=== PATIENT | female | born 1965 | race Caucasian/White ===

== ENCOUNTER 2023-03-12 20:22 | Emergency (ER) | payer BC, MEDICAID, SELFPAY ==
[2023-03-12 20:49] VITALS: BP 134/80; PULSE 103; RESP 16; TEMP 37.6; O2SAT 93; BMI 42.4
[2023-03-12 21:46] VITALS: TEMP 37.7
[2023-03-12 22:42] LABS: Rapid Strep A Test Negative (Negative)
--- NOTE | 2023-03-12 22:47 | ED_ITS ---
HPI - Headache General: Chief Complaint: Headache Stated Complaint: sore throat, neck and head pain Time Seen by Provider: 03/12/23 21:58 History of Present Illness: 58yo female here with sore throat that has been ongoing for the past couple of days as well as a headache and arthralgias. Patient reports it does hurt when she swallows. She states her son has similar symptoms. Patient denies any fever, difficulty breathing, shortness of breath, chest pain, abdominal pain, vomiting, diarrhea. Associated symptoms: Deny chest pain, fever(s) or vomiting Review of Systems Const: Denies: fever(s), chills or body aches ENMT: Reports: throat pain Card: Denies: chest pain Resp: Denies: dyspnea GI: Denies: vomiting or diarrhea Neuro: Reports: headache(s) Physical Exam Const: COMMON NORMALS: no acute distress, patient oriented x3 and alert GENERAL APPEARANCE: cooperative ORIENTATION/CONSCIOUSNESS: Yes awake OTHER: Patient is ambulatory to the exam room unassisted. She is sitting upright on the stretcher in no acute distress. No family is at bedside HENMT: COMMON NORMALS: normocephalic, atraumatic, TM's normal bilaterally and Normal nasal mucous membranes and turbinates present HEAD & SCALP: normocephalic and atraumatic NOSE: Normal nasal mucous membranes and turbinates present TYMPANIC MEMBRANE: TM's normal bilaterally THROAT: posterior oropharynx abnormal erythema Eye: GENERAL EYE: appearance normal, both eyes and all related structures Neck/C-Spine: COMMON NORMALS: full ROM Chest: CHEST: Yes Symmetrical chest wall rise Resp: COMMON NORMALS: normal respiratory effort EFFORT & INSPECTION: Yes a ble to speak in complete sentences and No respiratory distress Cardio: COMMON NORMALS: regular rate and regular rhythm RATE: regular rate RHYTHM: regular rhythm Neuro: COMMON NORMALS: patient oriented x3 SENSORIUM/ORIENTATION: Yes alert Psych: COMMON NORMALS: cooperative ATTITUDE: Yes calm Course Vital Signs: Vital signs: Vital Signs Temperature 99.9 F H 03/12/23 21:46 Pulse Rate 70 03/12/23 23:19 Respiratory Rate 20 H 03/12/23 23:19 Blood Pressure 161/87 03/12/23 23:19 Pulse Oximetry 97 03/12/23 23:19 Oxygen Delivery Me thod Room Air 03/12/23 20:49 MDM - Headache Medical Decision Making 58yo female here with a sore throat and headache that has been ongoing for the past couple of days. Patient also reports that she has had arthralgias. She denies difficulty breathing, shortness of breath, chest pain, abdominal pain, vomiting, diarrhea. Patient also declines any recent tick bites. Patient is nontoxic in appearance. Vital signs are stable. Differentials include strep pharyngitis, viral infection, tonsillitis Rapid strep is negative, culture is pending. Discussed findings with patient. Advised this is likely viral in nature and is typically self-limiting. Recommend Tylenol and/ibuprofen as needed for fever and discomfort. Advised to increase fluid intake and continue to monitor symptoms. Recommend follow-up with primary care, call later this week with an update of symptoms and to discuss a recheck. Advised return to the emergency department if any rapid worsening symptoms and as needed. Lab Data I reviewed the patient's lab results. Laboratory Results Group A Strep Rapid Negative (Negative) 03/12/23 22:26 Discharge Plan Discharge Patient Disposition: Home Clinical Impression: Nonspecific syndrome suggestive of viral illness Condition: Stable Discharge Orders: Discharge ED (Routine); Ordered 03/12/23 Ordered By: Robe Frost Referrals: Lucia Sutherland DO [Primary Care Provider] - Discharge Diet: Usual diet Discharge Activity: Resume usual activity Patient Instructions: Viral Syndrome (ED) Activity Restrictions/Additional Instructions: Rapid strep is negative, culture is pending. We will notify you if the culture is positive Increase fluid intake and continue to monitor your symptoms Use [id number] Tylenol and/ibuprofen as needed for headache and comfort Follow-up with primary care, call later this week with an update of symptoms and to discuss a recheck Return to the emergency department if any rapid worsening symptoms, difficulty breathing, shortness of breath, chest pain, and as needed Coding Level of Care Code ED Civil Engineering Technician for [facility]
[2023-03-12 23:19] VITALS: BP 161/87; PULSE 70; RESP 20; O2SAT 97
== END 2023-03-12 23:20 | disposition home or self-care (01) ==
PROVIDERS: Nurse Practitioner; PCP Family Medicine
DX: R51.9 Headache, unspecified (principal); J02.9 Acute pharyngitis, unspecified; M54.2 Cervicalgia
CPT/HCPCS: 12345; 87081; 87880; 99283

== ENCOUNTER 2023-11-02 16:07 | Emergency (ER) | payer BC, MEDICAID, SELFPAY ==
[2023-11-02 16:14] VITALS: BP 159/86; PULSE 70; RESP 17; TEMP 36.6; O2SAT 94; BMI 42.5
--- NOTE | 2023-11-02 16:25 | XRR_ITS ---
PROCEDURE INFORMATION: Exam: XR Chest Exam date and time: 11/02/2023 4:36 PM Age: 58 years old Clinical indication: Pain; Angina pectoris; Additional info: Chest pain TECHNIQUE: Imaging protocol: Radiologic exam of the chest. Views: 1 view. COMPARISON: No relevant prior studies available. FINDINGS: Lungs: Unremarkable. No consolidation. Pleural spaces: Unremarkable. No pleural effusion. No pneumothorax. Heart/Mediastinum: Unremarkable. No cardiomegaly. Bones/joints: Unremarkable. XR/XR chest 1V portable [id number] IMPRESSION: No acute findings.
--- NOTE | 2023-11-02 16:44 | ED_ITS ---
HPI - Chest Pain 2 General: Chief Complaint: Chest Pain Stated Complaint: chest pains Time Seen by Provider: 11/02/23 16:25 History of Present Illness: The patient presents with a chief complaint of right-sided chest pain and right arm discomfort that began yesterday. The patient denies any shortness of breath but occasionally catches a deep breath. No recent fevers, chills, sinus congestion, or cough are reported. The patient describes a sensation of feeling weird and tingly in the chest area but denies any new back pain or abdominal pain. The patient has a history of constipation and takes heartburn medication nightly. No abnormal vaginal bleeding or discharge is reported. The patient experiences occasional knee pain when getting up but states it is not out of the ordinary. The patient mentions a history of a stroke in 2019, which resulted in vision loss in the right eye. The patient reports that bright sunlight sometimes affects their head and vision. The patient's blood pressure typically runs around 138/80 mmHg and is not on any blood pressure medication. The patient has a history of gallbladder removal, hernia repair, and panniculectomy. The patient also has a loop recorder implanted but has not been read since 2019. The patient denies any history of smoking. Review of Systems 2 General: Reports: 10 or more systems reviewed and unremarkable except in HPI and below Physical Exam 2 Const: COMMON NORMALS: no acute distress, patient oriented x3, healthy appearing, alert and well nourished HENMT: COMMON NORMALS: normocephalic HEAD & SCALP: normocephalic Eye: COMMON NORMALS: EOMs intact bilaterally Neck/C-Spine: COMMON NORMALS: full ROM and supple Resp: COMMON NORMALS: normal respiratory effort, No retractions and clear to auscultation bilaterally AUSCULTATION: clear to auscultation bilaterally O THER: Not TTP Cardio: COMMON NORMALS: regular rate, regular rhythm, No gallops present (Cardio) and No murmurs present (Cardio) RATE: regular rate RHYTHM: r egular rhythm GI: COMMON NORMALS: Soft to palpation and non-tender PALPATION: Yes Soft to palpation Extremity: GENERAL: Yes normal exam except as noted Neuro: COMMON NORMALS: patient oriented x3 SENSORIUM/ORIENTATION: Yes alert Skin: COMMON NORMALS: no rashes or lesions noted GENERAL SKIN EXAM: no rashes or lesions noted Course 2 Vital Signs: Vital signs: Vital Signs Temperature 97.9 F 11/02/23 16:14 Pulse Rate 70 11/02/23 16:14 Respiratory Rate 17 11/02/23 16:14 Blood Pressure 159/86 11/02/23 16:14 Pulse Oximetry 94 11/02/23 16:14 Oxygen Delivery Me thod Room Air 11/02/23 16:14 MDM - Chest Pain Medical Decision Making 58-year-old female presents to the emergency department for evaluation of right- sided chest pain that was radiating into her arm. Her laboratory examination is negative for elevated troponin, elevated D-dimer, and CMP globally normal. Patient's chest pain is unlikely to be ACS, PE, or other life-threatening condition. Patient's chest pain likely secondary to either muscle skeletal or GI source. Instructed patient to follow-up with her primary care physician for further evaluation. Discussed return precautions. Patient discharged home in good condition. Differential Diagnosis Likely acute massive pulmonary embolism, acute respiratory failure and acute myocardial infarction Lab Data 11/02/23 16:38 11/02/23 16:38 Radiology Impressions Chest X-Ray 11/02/23 16:25 IMPRESSION: No acute findings. Laboratory Results WBC 7.45 10^3/uL (3.29-11.43) 11/02/23 16:38 RBC 5.60 10^6/uL (3.85-5.65) 11/02/23 16:38 Hgb 16.50 g/dL (11.27-16.99) 11/02/23 16:38 Hct 49.0 % (36-47) H 11/02/23 16:38 MCV 87.5 fl (85-98) 11/02/23 16:38 MCH 29.5 pg (27-33) 11/02/23 16:38 MCHC 33.7 g/dL (30-55) 11/02/23 16:38 RDW 12.5 % (12.1-15.1) 11/02/23 16:38 Plt Count 138 10^3/cmm (157-399) L 11/02/23 16:38 MPV 11.2 fL (7.4-10.4) H 11/02/23 16:38 Neut % (Auto) 59.5 % 11/02/23 16:38 Lymph % (Auto) 31.5 % 11/02/23 16:38 [place] % (Auto) 5.9 % 11/02/23 16:38 Eos % (Auto) 2.3 % 11/02/23 16:38 Baso % (Auto) 0.5 % 11/02/23 16:38 Neut # (Auto) 4.43 10^3/uL (1.8-7.7) 11/02/23 16:38 Lymph # (Auto) 2.4 10^3/uL (0.8-4.8) 11/02/23 16:38 [place] # (Auto) 0.4 10^3/uL (0.2-0.9) 11/02/23 16:38 Eos # (Auto) 0.2 10^3/uL (0.0-0.8) 11/02/23 16:38 Baso # (Auto) 0.0 10^3/uL (0.0-0.1) 11/02/23 16:38 Nucleated RBC % (auto) 0 % 11/02/23 16:38 Nucleated RBCs # 0.0 /100WBC 11/02/23 16:38 PT 13.90 SECONDS (12.1-14.9) 11/02/23 16:38 INR 1.04 (0.8-1.2) 11/02/23 16:38 APTT 20.6 SECONDS (23.9-36.7) L 11/02/23 16:38 D-Dimer 0.36 ug/mLFEU (0-0.59) 11/02/23 16:38 Sodium 137 mmol/L (136-145) 11/02/23 16:38 Potassium 3.8 mmol/L (3.5-5.1) 11/02/23 16:38 Chloride 101 mmol/L (98-107) 11/02/23 16:38 Carbon Dioxide 26 mmol/L (22-29) 11/02/23 16:38 Anion Gap 13.8 (5-19) 11/02/23 16:38 BUN 10 mg/dL (6-20) 11/02/23 16:38 Creatinine 0.7 mg/dL (0.5-0.9) 11/02/23 16:38 GFR Calculation 86.2 mL/min (90-130) L 11/02/23 16:38 Glucose 123 mg/dL (65-115) H 11/02/23 16:38 Calculated Osmolality 284 mOsm/kg (285-295) L 11/02/23 16:38 Calcium 10.3 mg/dL (8.5-10.5) 11/02/23 16:38 Total Bilirubin 1.3 mg/dL (0.15-1.2) H 11/02/23 16:38 AST 24 U/L (0-32) 11/02/23 16:38 ALT 25 U/L (0-33) 11/02/23 16:38 Alkaline Phosphatase 86 U/L (35-105) 11/02/23 16:38 Troponin T Baseline < 6 ng/L (0-10) 11/02/23 16:38 Total Protein 7.6 g/dL (6.6-8.7) 11/02/23 16:38 Albumin 4.3 g/dL (3.5-5.2) 11/02/23 16:38 Globulin 3.3 g/dL (1.3-4.6) 11/02/23 16:38 All radiology interpretation(s) finalized by discharge Discharge Plan Discharge Patient Disposition: Home Clinical Impression: Atypical chest pain Hypertension Qualifiers: Hypertension type: primary hypertension Qualified Code(s): I10 - Essential (primary) hypertension Condition: Stable Prescriptions: No Action famotidine 20 mg Tablet 20 mg PO QPM docusate sodium 100 mg Capsule 100 mg PO DAILY PRN (Reason: Constipation) Discharge Orders: Discharge ED (Routine); Ordered 11/02/23 Ordered By: Jude Law Referrals: Lucia Sutherland DO [Primary Care Provider] - Discharge Diet: Advance as tolerated Discharge Activity: Resume usual activity Patient Instructions: Opioid Safety, Pain Management Activity Restrictions/Additional Instructions: Follow-up with primary care doctor for management of hypertension and further evaluation for noncardiac chest pain. Coding Level of Care Code ED Seasonal Recruiter for [facility]
[2023-11-02 16:46] LABS: Basophils % 0.5 %; Eosinophils # 0.2 10^3/uL (0.0-0.8); Eosinophils % 2.3 %; Lymphocytes # 2.4 10^3/uL (0.8-4.8); Lymphocytes % 31.5 %; Mean Corpuscular HGB Conc 33.7 g/dL (30-55); Mean Corpuscular Hemoglobin 29.5 pg (27-33); Mean Corpuscular Volume 87.5 fl (85-98); Mean Platelet Volume 11.2 fL (7.4-10.4); Monocytes # 0.4 10^3/uL (0.2-0.9); Monocytes % 5.9 %; Neutrophils # 4.43 10^3/uL (1.8-7.7); Neutrophils % 59.5 %; Nucleated Red Blood Cells % 0 %; Platelet Count 138 10^3/cmm (157-399); Red Cell Distribution Width 12.5 % (12.1-15.1); White Blood Count 7.45 10^3/uL (3.29-11.43)
[2023-11-02 17:05] LABS: INR 1.04 (0.8-1.2); Partial Thromboplastin Time 20.6 SECONDS (23.9-36.7)
[2023-11-02 17:09] LABS: D Dimer 0.36 ug/mLFEU (0-0.59)
[2023-11-02 17:10] LABS: Alanine Aminotransferase 25 U/L (0-33); Albumin Level 4.3 g/dL (3.5-5.2); Alkaline Phosphatase 86 U/L (35-105); Blood Urea Nitrogen 10 mg/dL (6-20); Calcium 10.3 mg/dL (8.5-10.5); Carbon Dioxide 26 mmol/L (22-29); Chloride 101 mmol/L (98-107); Creatinine Clr Calc Pharmacy 124.7817; Globulin 3.3 g/dL (1.3-4.6); Glomerular Filtration Rate 86.2 mL/min (90-130); Glucose 123 mg/dL (65-115); Osmolality Calculated 284 mOsm/kg (285-295); Sodium 137 mmol/L (136-145); Total Bilirubin 1.3 mg/dL (0.15-1.2); Total Protein 7.6 g/dL (6.6-8.7)
[2023-11-02 17:11] LABS: Anion Gap 13.8 (5-19); Potassium 3.8 mmol/L (3.5-5.1); Troponin(5th) Baseline < 6 ng/L (0-10)
[2023-11-02 17:13] LABS: Aspartate Amino Transferase 24 U/L (0-32)
== END 2023-11-02 18:23 | disposition home or self-care (01) ==
PROVIDERS: Emergency Provider General Practice; PCP Family Medicine
DX: R07.89 Other chest pain (principal); I10 Essential (primary) hypertension
CPT/HCPCS: 71045; 80053; 84484; 85025; 85378; 85610; 85730; 99285

== ENCOUNTER → 2023-11-14 09:29 | Outpatient (BNVA) | payer BC, MEDICAID, SELFPAY | PROVIDERS: PCP Family Medicine; Visit Provider Family Medicine | DX: Z13.6 Encounter for screening for cardiovascular disorders (principal); Z01.419 Encounter for gynecological examination (general) (routine) without abnormal findings; R07.0 Pain in throat | CPT/HCPCS: 80053; 80061; 85025; 87880; 88175 ==

== ENCOUNTER 2023-12-17 08:57 | Outpatient (CLI) | payer BC, MEDICAID, SELFPAY ==
--- NOTE | 2023-12-17 09:00 | MM_ITS ---
WS: [id number] BILATERAL 3D TOMOSYNTHESIS DIGITAL SCREENING MAMMOGRAPHY WITH CAD CLINICAL INFORMATION: Z12.39 - Encounter for other screening for malignant neop... HISTORY: Screening mammogram. No current complaints. COMPARISON: Outside examinations 2018 TECHNIQUE: Bilateral CC and MLO views. FINDINGS: Stereotactic biopsy recommended of the RIGHT breast calcifications in 2018 Scattered fibroglandular densities bilaterally. No suspicious focal mass, asymmetry, calcifications, or architectural distortion. No evidence of malignancy. Incidental intramammary lymph node upper oute r LEFT breast. Cluster calcifications outer RIGHT breast. Recommend spot magnification views in furth er evaluation. These appear slightly progressed since 2018 MM/[place] [id number] IMPRESSION: BI-RADS: 0-Incomplete: Need additional imaging evaluation FOLLOW UP: Need Additional Imaging Recommend spot magnification views of the calcifications outer RIGHT breast
== END 2023-12-17 08:58 | disposition home or self-care (01) ==
LOC: MOBLMAM 09:06
PROVIDERS: PCP Family Medicine; Visit Provider Family Medicine
DX: Z12.31 Encounter for screening mammogram for malignant neoplasm of breast (principal); R92.323 Mammographic fibroglandular density, bilateral breasts; R59.0 Localized enlarged lymph nodes; R92.1 Mammographic calcification found on diagnostic imaging of breast
CPT/HCPCS: 77063; 77067

== ENCOUNTER 2024-01-30 14:16 | Outpatient (CLI) | payer BC, MEDICAID, SELFPAY ==
--- NOTE | 2024-01-30 14:30 | MM_ITS ---
WS: [id number] RIGHT 3D TOMOSYNTHESIS DIGITAL MAMMOGRAPHY WITH CAD CLINICAL INFORMATION: right calcifications seen on screening mamogram HISTORY: Additional views calcifications COMPARISON: 12/17/2023 TECHNIQUE: 3 views of the right breast were obtained. FINDINGS: Scattered fibroglandular densities of the right breast. Again seen are the clustered calcifications o uter RIGHT breast. These appear relatively stable today on the magnification views since 2018. Stabil ity is reassuring. Recommend 6-month follow-up to confirm stability. MM/[place] [id number] IMPRESSION: BI-RADS: 3-Probably Benign FOLLOW UP: 6 Month Follow-up Recommend 6-month follow-up RIGHT breast diagnostic mammography with magnificat ion views of the calcifications
== END 2024-01-30 14:17 | disposition home or self-care (01) ==
LOC: RAD 14:17
PROVIDERS: PCP Family Medicine; Visit Provider Family Medicine
DX: R92.1 Mammographic calcification found on diagnostic imaging of breast (principal); R92.323 Mammographic fibroglandular density, bilateral breasts
CPT/HCPCS: 77061; G0279

== ENCOUNTER 2024-04-20 06:00 | Outpatient (CLI) | payer BC, MEDICAID, SELFPAY | END 2024-04-20 06:01 | disposition home or self-care (01) | LOC: RAD 05-08 13:34 | PROVIDERS: PCP Family Medicine; Visit Provider Family Medicine | DX: Z13.6 Encounter for screening for cardiovascular disorders (principal) | CPT/HCPCS: 80053; 80061; 84443; 85025 ==

== ENCOUNTER → 2024-05-07 09:48 | Outpatient (BNVA) | payer BC, MEDICAID, SELFPAY | PROVIDERS: PCP Family Medicine; Visit Provider Nurse Practitioner Family | DX: R73.9 Hyperglycemia, unspecified (principal) | CPT/HCPCS: 80053; 83036 ==

== ENCOUNTER 2024-05-11 12:01 | Outpatient (CLI) | payer BC, MEDICAID, SELFPAY ==
--- NOTE | 2024-05-11 12:30 | CT_ITS ---
WS: [id number] CT ABDOMEN AND PELVIS WITH CONTRAST HISTORY: recurrent incisional hernia with incarceration TECHNIQUE: Imaging performed of the abdomen and pelvis with IV contrast. Single phase imaging of the abdomen. Coronal and sagittal reformats are submitted. All CT scans at [facility] use at tet[facility] st one of these dose optimization techniques: automated exposure control; mA and/or kV adjustment per patient size (includes targeted exams where dose is matched to clinical indication); or iterative re construction. IV CONTRAST: Omnipaque 350; 100 mL IV. Oral contrast: Yes DLP: 1639.23 mGy.cm COMPARISON: None available. Lower thorax: Lung bases are clear. Heart is normal size. No hiatal hernia. Liver/biliary system: Mild hepatomegaly. No bile duct dilatation. Normal portal vein. Gallbladder: Prior cholecystectomy. Pancreas: Normal size pancreas and pancreatic duct. No adjacent inflammation. Spleen: Normal size spleen. No mass or infarct. Adrenal glands: Normal. Right kidney: Numerous scattered low attenuation masses throughout the kidney. These are probably cys ts but cannot be further characterized. There is no obstruction of the kidney. Normal ureter. Left kidney: Multiple low-attenuation masses throughout the kidney. Hounsfield units are slightly alfie vated suggesting these are not simple cysts. Aorta: Mild atherosclerosis with no aneurysm. Lymphadenopathy: None. Free fluid: None. GI tract: Nondistended stomach. No small bowel obstruction. No colon obstruction. Prior appendectomy. Mild sigmoid diverticulosis. Abdominal wall: Abnormal abdominal wall. There is a thin band of soft tissue beginning just above the level of the umbilicus and extending to the LEFT. This band of soft tissue is just deep to the rectu s muscle. The rectus muscle is very thin caliber and this may be the aponeurosis. There is fat betwee n this band of soft tissue and the additional musculature of the LEFT lateral abdominal wall. There i s a defect within the band which contains loops of nondilated small bowel. Extending inferiorly along the ventral abdominal wall there is an additional defect centrally just above the level of the symph ysis pubis. The orifice measures 5.0 cm and there are loops of nonobstructed small bowel. This hernia and small bowel contents hang low and extends below the symphysis pubis. Pelvis: No free fluid or adenopathy within the pelvis. Uterus and ovaries are both present and unrema rkable. Minimally distended bladder. Bones: Increase in the lumbar lordosis. Structures of S2 vertebral CT/CT abdomen pelvis w con* [id number] IMPRESSION: 1. Abnormal abdominal wall. Thin bandlike soft tissue extends from the midline of the abdomen to the LEFT and may be the aponeurosis of the rectus muscle. Th ere is fat between this band of soft tissue and abdominal wall. Defect within t he band contains small bowel but no obstruction. 2. There is a large infraumbilical abdominal wall hernia also containing nonob structed small bowel. This hernia extends inferiorly over the pelvis to the lev el of the symphysis pubis. 3. Prior cholecystectomy. 4. Numerous low-attenuation masses within each kidney. Majority of these are t oo small to characterize but these are not simple cysts. Consider ultrasound fo llow-up of the kidneys.
[2024-05-11] MEDS: iohexol 350 mg/mL 500 mL Btl (per mL) IV (13:05)
[2024-05-11] MEDS: iohexol 350 mg/mL 500 mL Btl (per mL) PO (13:06)
== END 2024-05-11 12:02 | disposition home or self-care (01) ==
LOC: RAD 12:02
PROVIDERS: PCP Family Medicine; Visit Provider Surgery
DX: K43.0 Incisional hernia with obstruction, without gangrene (principal); R93.89 Abnormal findings on diagnostic imaging of other specified body structures; Z90.49 Acquired absence of other specified parts of digestive tract; R93.429 Abnormal radiologic findings on diagnostic imaging of unspecified kidney
CPT/HCPCS: 74177

== ENCOUNTER 2024-05-21 13:37 | Inpatient (IN) | payer BC, MEDICAID, SELFPAY ==
[2024-05-21] VITALS (22 sets, daily range): BP systolic 93–147; BP diastolic 33–94; PULSE 53–77; RESP 12–20; TEMP 35.6–36.8; O2SAT 91–98; BMI 43.0
--- NOTE | 2024-05-21 07:45 | W.PM.OPSUD ---
Surgery/Procedure H&P Update DATE OF PROCEDURE: May 21, 2024 DATE H&P PERFORMED: 05/14/24 H&P UPDATE INFORMATION: I have reviewed H&P completed within last 30 days, I have examined patient prior to procedure and No changes to prior documentation PLANNED PROCEDURE: Operation Date: 05/21/24 09:05 Proposed Procedures p lap recurrent incisional hernia with mesh 62060,K43.0(Not Applicable) - Lacho Groves,
--- NOTE | 2024-05-21 08:22 | ANES.PREANE2 ---
Pre-Anesthetic Assessment Height/Weight: Height 5 ft 8 in Weight 283 lb O2 Del Method Room Air 05/21/24 07:53 Preop Diagnosis: Hernia Operation Date: 05/21/24 09:05 Proposed Procedures p lap recurrent incisional hernia with mesh 36278,K43.0(Not Applicable) - Lacho Groves DO Was Beta Allison taken within 24 hours: N/A Was Clonidine taken within 24 hours: N/A Last intake: Intake Last Liquid Date 05/20/24 Last Liquid Time 17:00 Last Solid Date 05/20/24 Last Solid Time 17:00 Social No alcohol and No tobacco Exam alert, oriented x 3, clear to auscultation bilaterally and regular rate & rhythm Airway Submandibular: within normal limits Cervical ROM: within normal limits Mallampati: Class II Comments: Comments: Upper dentures, full bottom teeth. Declines any loose Anesthetic Plan ASA status: 3 Anesthesia: General Other: No prior issues with anesthesia NPO since yesterday evening History of GERD, takes famotidine BMI 43 Borderline diabetic, A1c 6.3 METs greater than 4 Plan for GETA Medications/Allergies Home Medications Medication Instructions Recorded Confirmed Last Taken Type famotidine 40 mg tablet 40 mg PO BID #60 tabs 04/20/24 05/20/24 05/19/24 Rx rosuvastatin 5 mg tablet 5 mg PO DAILY #90 tabs 04/23/24 05/20/24 Unknown Rx Allergies Allergy/AdvReac Type Severity Reaction Status Date / Time No Known Allergies Allergy Verified 05/14/24 08:45 PFSH Anesthesia Surgical History Hx of section x3 Hx laparoscopic cholecystectomy Hx of hernia repair with panniculotomy Hx of colonoscopy unknown when last done Family History Mother Cancer non hodkins lymphoma Diabetes Father Cancer pancreatic Sister Breast cancer Social History Smoking and tobacco/nicotine status: never used tobacco/nicotine Second hand smoke exposure: No Alcohol intake: never Substance/Drug Use: never Data Anesthesia Cardiac Studies: No Data to Display
[2024-05-21] MEDS: sodium chloride 0.9% 1,000 ML 30 ML IV (08:28)
[2024-05-21] MEDS: ceFAZolin 3,000 MG in sodium chloride 0.9% (100 ml) 100 ML 200 MG IV (08:32)
[2024-05-21] MEDS: lidocaine-epi 2% PF 1:200,000 20 mL SDV 10 ML INJECTION (09:26)
[2024-05-21] MEDS: tranexamic acid 1,000 mg/10mL SDV 1000 MG IV (11:15)
--- NOTE | 2024-05-21 12:31 | P.OP_ITS ---
Operative Report Date of procedure: May 21, 2024 Pre-op diagnosis: Incarcerated recurrent incisional hernia Post-op diagnosis: same Procedure done: Laparoscopic converted to open incarcerated recurrent incisional hernia repair with mesh Extensive laparoscopic lysis of adhesions Implants: 8 inch round Ventralight mesh Specimens removed/disposition: Hernia sac Surgeon: Lacho Groves DO Anesthesia: General and Local Estimated blood loss (mL): 50 Complications: None apparent Brief History: This is a very pleasant 59-year-old female who presented my office with a recurrent incarcerated incisional hernia with mesh. Workup included a CT of the abdomen pelvis which showed the hernia to be incarcerated with both small and large bowel. Laparoscopic repair with mesh was indicated. The risks and benefits of the procedure, including bleeding, infection, scar, numbness, pain, need to convert to an open procedure, damage to surrounding structures, recurrence, were explained to the patient. She is understanding of the risks and wished to proceed Procedure: Patient was wheeled operative room placed on the OR table in the supine position. General endotracheal ovation was achieved by the part of anesthesia. The abdomen was inspected prepped and draped in usual sterile fashion. A timeout was performed. All present were in agreement. 2% lidocaine with epinephrine was used to anesthetize the skin overlying Adams's point in the left upper quadrant. A 5 mm incision was made with a 15 blade scalpel. A Veress needle was placed into the abdomen and the abdomen was insufflated to 15 mmHg. A 12 mm trocar was then placed, in a similar fashion, and the left lower quadrant. A large hernia containing small bowel, large bowel and omentum was identified in the lower abdomen. She longer has an umbilicus after a previous panniculectomy. I then began reducing the hernia both manually and with ligature. A second 5 mm trocar was then placed between the 2 other trocars. Greater than 1 hour laparoscopic lysis of adhesions was performed. At this po int was determined that it was best to convert to an open procedure in order to remove all of the small and the large bowel safely. A 10 blade scalpel was then used to make a midline laparotomy incision. Dissection was carried down through the fascia and peritoneum using electrocautery. A complex hernia sac was encountered and all adhesions were broken with electrocautery. Another greater than 1 hour of lysis of adhesions was performed. All bowel and omentum was reduced. I then ran the entirety of the small bowel. There was a small serosal tear that I oversewed with 3-0 Vicryl in interrupted fashion using Lembert stitches. Rest of the bowel looked fine. I then cut out the hernia sac electrocautery. I examined the rest of the abdomen and no intra-abdominal pathology was identified. I then closed the laparotomy incision using #1 PDS in a running fashion x 2. I then converted back to laparoscopy. An 8 inch round Ventralight mesh was inserted into the left lower quadrant. This was pulled up through the center of the repair with a Ke-Nannette. An 8 inch round Ventralight mesh was tacked into place using a secure strap and a double crown fashion. The 12 mm trocar site was then closed with a Ke-Nannette and 0 Vicryl suture in a [id number] fashion. Skin was closed with isaías. Patient tolerated procedure well. Due to the complexity of this hernia, was converted to an open procedure and the patient will be admitted to the hospital.
--- NOTE | 2024-05-21 13:23 | ANES.PROC ---
Anesthesia Procedures Procedure/Date: 05/21/24 Nerve Block ^: Nerve Block 1: Main Anesthesia: general anesthesia Time Out Performed: Yes Nerve block location: other (bilateral TAP block) Anesthesia monitors applied: pulse oximetry, EKG, BP cuff and oxygen Nerve block position: lateral Anesthetic Used: other (ropivicaine 0.2%) Amount of anesthesia used (mL): 60 Ultrasound used to: recognize landmarks Nerve Stimulator Used?: No Interscalene/Femoral BLK: other needle (6inch pjunk needle) Injection: neg aspiration of heme Patient Tolerated Procedure: well Complications: none
--- NOTE | 2024-05-21 14:09 | ANE.PACU2 ---
Inpatient post-anesthesia follow up: Airway intact: Yes Vital signs: Temperature 98 F Pulse Rate 62 Respiratory Rate 18 Blood Pressure 118/53 Pulse Oximetry 95 Oxygen Delivery Me thod Room Air Oxygen Flow Rate 7 Fraction of Inspir ed Oxygen Hydration adequate: Yes Nausea and vomiting: No Pain level: 1 Mental status: Baseline
[2024-05-21] MEDS: ketorolac 30 mg/mL INJ IVP ×2 (15:32→20:24)
[2024-05-21] MEDS: piperacillin-tazobactam 3.375 GM in sodium chloride 0.9% (plus) 50 ML IV ×2 (15:33→22:52)
[2024-05-21] MEDS: dextrose 5%-ns + KCl 20 20 MEQ/1,000 ML BAG 125 MEQ IV ×2 (15:33→23:45)
[2024-05-22] MEDS: ketorolac 30 mg/mL INJ IVP ×4 (03:16→20:13)
[2024-05-22] MEDS: ondansetron 2 mg/ML SDV 2 mL 4 MG IVP ×3 (03:27→20:12)
[2024-05-22 04:19] VITALS: BP 142/84; PULSE 81; RESP 17; TEMP 36.7; O2SAT 94
[2024-05-22] MEDS: heparin 5,000 unit/mL INJ 1 mL 5000 UNIT SUBCUT ×2 (05:43→17:42)
[2024-05-22 05:48] LABS: Basophils % 0.2 %; Hematocrit 49.2 % (36-47); Lymphocytes # 1.1 10^3/uL (0.8-4.8); Lymphocytes % 7.3 %; Mean Corpuscular HGB Conc 31.5 g/dL (30-55); Mean Corpuscular Hemoglobin 29.4 pg (27-33); Mean Corpuscular Volume 93.4 fl (85-98); Mean Platelet Volume 10.9 fL (7.4-10.4); Monocytes # 1.1 10^3/uL (0.2-0.9); Monocytes % 7.2 %; Neutrophils # 12.41 10^3/uL (1.8-7.7); Nucleated Red Blood Cells % 0 %; Platelet Count 196 10^3/cmm (157-399); Red Blood Count 5.27 10^6/uL (3.85-5.65); Red Cell Distribution Width 13.3 % (12.1-15.1)
[2024-05-22] MEDS: piperacillin-tazobactam 3.375 GM in sodium chloride 0.9% (plus) 50 ML IV ×3 (06:16→22:28)
[2024-05-22 07:33] VITALS: BP 120/71; PULSE 77; RESP 17; TEMP 36.6; O2SAT 93
[2024-05-22] MEDS: dextrose 5%-ns + KCl 20 20 MEQ/1,000 ML BAG 125 MEQ IV ×3 (08:37→22:27)
[2024-05-22 11:34] VITALS: BP 139/79; PULSE 78; RESP 16; TEMP 36.4; O2SAT 92
[2024-05-22] MEDS: HYDROmorphone 1 mg/mL INJ 1 mL IVP (14:09)
[2024-05-22 15:06] VITALS: BP 108/64; PULSE 89; RESP 15; TEMP 36.7; O2SAT 90
--- NOTE | 2024-05-22 15:16 | P.PN_ITS ---
Subjective 2 Subjective: Patient seen and examined. Pain controlled. Only pulling 1000 cc on incentive spirometer. Reports passing flatus. No bowel movement Vitals/I&O/Wt Last Vital Signs Temp 97.6 F 05/22/24 11:34 Pulse 78 05/22/24 11:34 Resp 16 05/22/24 11:34 BP 139/79 05/22/24 11:34 Pulse Ox 92 05/22/24 11:34 O2 Del Method Room Air 05/22/24 11:34 O2 Flow Rate 7 05/21/24 13:32 05/22/24 05/22/24 05/22/24 06:59 14:59 22:59 Intake Total 1050 / 3560 1785.417 / 1785.417 Output Total 400 / 2400 Balance 650 / 1160 1785.417 / 1785.417 Weight last 48 hrs Weight 282 lb 9.6 oz Weight 283 lb Physical Exam 2 Narrative: General: No acute distress, awake alert and oriented x 3 Abdomen: Soft, nondistended, appropriately tender, dressings clean dry and intact Urinary Catheter Management: Calhoun: Cath Placed During This Visit: yes Reason for Continuing Indwelling Catheter: Perioperative Use in Selected Surgeries Urinary Catheter Date of Insertion: 05/21/24 Urinary Catheter Time of Insertion: 08:45 Data 05/23/24 05:50 A&P Assessment and plan (1) Recurrent incisional hernia with incarceration: (2) Morbid obesity with BMI of 40.0-44.9, adult: (3) Abdominal adhesions: Plan Postoperative day #1 status post laparoscopic converted to open repair of recurrent incarcerated incisional hernia with mesh and extensive lysis of adhesions Antibiotics for mesh coverage-there was significant bowel dissection Pain control Encourage incentive spirometer use Clear liquid diet Ambulate Attestations 2 Medical Necessity Statement*: She likely will need to stay at least couple more nights for return of bowel function after open repair of recurrent incarcerated incisional hernia with mesh and extensive lysis of adhesions Coding Level of Care Code Acute Code for Chg Fwd Diagnoses Recurrent incisional hernia with incarceration K43.0 Morbid obesity with BMI of 40.0-44.9, adult E66.01; Z68.41 Abdominal adhesions K66.0
--- NOTE | 2024-05-22 17:56 | PC.NURSE ---
Tolerates clear liquids well. States she is in pain, but no worse than usual. Denies nausea. Would like to delay pain medication until bedtime.
[2024-05-22 19:32] VITALS: BP 127/80; PULSE 89; RESP 19; TEMP 36.7; O2SAT 94
[2024-05-22 23:58] VITALS: BP 121/74; PULSE 87; RESP 17; TEMP 36.4; O2SAT 93
[2024-05-23] MEDS: ondansetron 2 mg/ML SDV 2 mL 4 MG IVP ×2 (03:03→16:13)
[2024-05-23] MEDS: ketorolac 30 mg/mL INJ IVP ×4 (03:04→20:05)
[2024-05-23 04:05] VITALS: BP 133/81; PULSE 92; RESP 16; TEMP 37.1; O2SAT 92
[2024-05-23] MEDS: dextrose 5%-ns + KCl 20 20 MEQ/1,000 ML BAG 125 MEQ IV ×2 (06:29→16:16)
[2024-05-23] MEDS: heparin 5,000 unit/mL INJ 1 mL 5000 UNIT SUBCUT ×2 (06:29→16:13)
[2024-05-23] MEDS: piperacillin-tazobactam 3.375 GM in sodium chloride 0.9% (plus) 50 ML IV ×3 (06:29→23:12)
[2024-05-23 06:41] LABS: Basophils % 0.2 %; Eosinophils # 0.1 10^3/uL (0.0-0.8); Eosinophils % 0.6 %; Hematocrit 41.5 % (36-47); Lymphocytes # 1.3 10^3/uL (0.8-4.8); Lymphocytes % 13.1 %; Mean Corpuscular Hemoglobin 29.7 pg (27-33); Mean Corpuscular Volume 92.6 fl (85-98); Mean Platelet Volume 10.8 fL (7.4-10.4); Monocytes # 0.5 10^3/uL (0.2-0.9); Monocytes % 4.5 %; Neutrophils # 8.19 10^3/uL (1.8-7.7); Nucleated Red Blood Cells % 0 %; Platelet Count 162 10^3/cmm (157-399); Red Blood Count 4.48 10^6/uL (3.85-5.65); Red Cell Distribution Width 13.7 % (12.1-15.1); White Blood Count 10.12 10^3/uL (3.29-11.43)
[2024-05-23 08:19] VITALS: BP 148/83; PULSE 61; RESP 16; TEMP 36.3; O2SAT 96
--- NOTE | 2024-05-23 09:53 | PC.NURSE ---
210 ft walked with pt. Tolerates well.
[2024-05-23 11:36] VITALS: BP 136/76; PULSE 94; RESP 16; TEMP 36.4; O2SAT 96
[2024-05-23 16:24] VITALS: PULSE 67; RESP 16; TEMP 36.4; O2SAT 98
--- NOTE | 2024-05-23 18:49 | P.PN_ITS ---
Subjective 2 Subjective: Patient seen and examined. Pain controlled. Now pulling 1500 cc on incentive spirometer. Reports passing flatus. No bowel movement. Ambulated in halls Vitals/I&O/Wt Last Vital Signs Temp 97.6 F 05/23/24 16:24 Pulse 67 05/23/24 16:24 Resp 16 05/23/24 16:24 BP 136/76 05/23/24 11:36 Pulse Ox 98 05/23/24 16:24 O2 Del Method Room Air 05/23/24 16:24 O2 Flow Rate 7 05/21/24 13:32 05/23/24 05/23/24 05/23/24 06:59 14:59 22:59 Intake Total 1050 / 3999.167 1530 / 1530 360 / 1890 Output Total 2275 / 2275 600 / 600 Balance -1225 / 1724.167 930 / 930 360 / 1290 Weight last 48 hrs Weight 307 lb Weight 282 lb 9.6 oz Physical Exam 2 Narrative: General: No acute distress, awake alert and oriented x 3 Abdomen: Soft, nondistended, appropriately tender, incision intact without erythema or exudate Urinary Catheter Management: Calhoun: Cath Placed During This Visit: yes Reason for Continuing Indwelling Catheter: Other Urinary Catheter Date of Insertion: 05/21/24 Urinary Catheter Time of Insertion: 08:45 Data 05/23/24 05:50 A&P Assessment and plan (1) Recurrent incisional hernia with incarceration: (2) Morbid obesity with BMI of 40.0-44.9, adult: (3) Abdominal adhesions: Plan Postoperative day #2 status post laparoscopic converted to open repair of recurrent incarcerated incisional hernia with mesh and extensive lysis of adhesions Antibiotics for mesh coverage-there was significant bowel dissection Pain control Encourage incentive spirometer use Full liquid diet Await return of bowel function Ambulate Attestations 2 Medical Necessity Statement*: She likely will need to stay at least couple more nights for return of bowel function after open repair of recurrent incarcerated incisional hernia with mesh and extensive lysis of adhesions Coding Level of Care Code Acute Code for Chg Fwd Diagnoses Recurrent incisional hernia with incarceration K43.0 Morbid obesity with BMI of 40.0-44.9, adult E66.01; Z68.41 Abdominal adhesions K66.0
[2024-05-23 20:00] VITALS: BP 143/71; PULSE 93; RESP 19; TEMP 36.9; O2SAT 94
[2024-05-24] VITALS: BP 142/82; PULSE 85; RESP 16; TEMP 36.8; O2SAT 92
[2024-05-24] MEDS: ketorolac 30 mg/mL INJ IVP ×2 (03:18→09:01)
[2024-05-24] MEDS: ondansetron 2 mg/ML SDV 2 mL 4 MG IVP (03:18)
[2024-05-24] MEDS: dextrose 5%-ns + KCl 20 20 MEQ/1,000 ML BAG 125 MEQ IV ×2 (03:19→12:14)
[2024-05-24 04:17] VITALS: BP 146/83; PULSE 90; RESP 15; TEMP 37.1; O2SAT 91
[2024-05-24] MEDS: piperacillin-tazobactam 3.375 GM in sodium chloride 0.9% (plus) 50 ML IV (06:05)
[2024-05-24] MEDS: heparin 5,000 unit/mL INJ 1 mL 5000 UNIT SUBCUT (06:06)
[2024-05-24 07:03] LABS: Basophils % 0.4 %; Eosinophils # 0.3 10^3/uL (0.0-0.8); Eosinophils % 3.1 %; Lymphocytes # 1.3 10^3/uL (0.8-4.8); Mean Corpuscular HGB Conc 32.3 g/dL (30-55); Mean Corpuscular Hemoglobin 29.7 pg (27-33); Mean Platelet Volume 10.3 fL (7.4-10.4); Monocytes # 0.4 10^3/uL (0.2-0.9); Monocytes % 4.4 %; Neutrophils # 6.46 10^3/uL (1.8-7.7); Neutrophils % 76.9 %; Nucleated Red Blood Cells % 0 %; Platelet Count 175 10^3/cmm (157-399); Red Blood Count 4.24 10^6/uL (3.85-5.65); Red Cell Distribution Width 13.2 % (12.1-15.1)
[2024-05-24 08:06] VITALS: BP 134/84; PULSE 82; RESP 18; TEMP 36.8; O2SAT 94
[2024-05-24 11:40] VITALS: BP 135/80; PULSE 81; RESP 18; TEMP 36.8; O2SAT 93
--- NOTE | 2024-05-24 14:12 | PM.DCS ---
Discharge Providers Date of Admission: 05/21/24 13:37 Date of Discharge: May 24, 2024 Attending Provider at Admission: Lacho Groves DO Attending Provider at Discharge: Lacho Groves DO Primary Care Provider: XAVI Richards Diagnoses at Discharge Discharge Diagnosis (1) Recurrent incisional hernia with incarceration: Status: Acute (2) Morbid obesity with BMI of 40.0-44.9, adult: Status: Acute (3) Abdominal adhesions: Status: Acute Reason for Visit Reason for Visit: K43.0 Hospital Course Hospital Course This is a very pleasant 59-year-old female who presented to the hospital as an outpatient for repair of a recurrent incarcerated incisional hernia with mesh. The surgery was converted to an open procedure and there was extensive lysis of adhesions. She was admitted postoperatively. Pain control and diet management until return of bowel function. Her pain was under control and she was having a bowel movement, tolerating regular diet prior to discharge Physical Exam Narrative: General : Patient is well developed , no acute distress, oriented x3 Head : Normal cephalic, a-traumatic. Ears : Pinnae and external canal are normal. Hearing is normal. Eyes : PERRLA, Sclera and injection are normal. No conjunctival discharge. Nose : Mucous membranes are without erythema. Throat : buccal mucosa is normal, gums are without significant recession or hypertrophy. Lungs : Equal chest rise bilaterally, no use of accessory muscles, trachea is midline. Cor : Rate and rhythm are normal. Abdomen : Soft, ND, appropriately tender, no g/r/m Incision intact without erythema or exudate Extremities : No edema, no cyanosis or clubbing, dorsalis pedis pulses are present bilaterally, non-tender to palpation of calves. Upper extremities are normal bilaterally. Back : non-tender to palpation, no CVA tenderness. Neuro : CN II - XII intact, Upper and lower extremities have equal and full strength Urinary Catheter Management: Calhoun: Cath Placed During This Visit: yes Reason for Continuing Indwelling Catheter: Other Urinary Catheter Date of Insertion: 05/21/24 Urinary Catheter Time of Insertion: 08:45 Discharge Data Studies Completed and Pending Pending at discharge Category Date Time Status Pathology: Surgical [PTH] Routine Pth 05/21/24 12:14 Received Laboratory Results WBC 8.40 10^3/uL (3.29-11.43) 05/24/24 06:32 RBC 4.24 10^6/uL (3.85-5.65) 05/24/24 06:32 Hgb 12.60 g/dL (11.27-16.99) 05/24/24 06:32 Hct 39.0 % (36-47) 05/24/24 06:32 MCV 92.0 fl (85-98) 05/24/24 06:32 MCH 29.7 pg (27-33) 05/24/24 06:32 MCHC 32.3 g/dL (30-55) 05/24/24 06:32 RDW 13.2 % (12.1-15.1) 05/24/24 06:32 Plt Count 175 10^3/cmm (157-399) 05/24/24 06:32 MPV 10.3 fL (7.4-10.4) 05/24/24 06:32 Neut % (Auto) 76.9 % 05/24/24 06:32 Lymph % (Auto) 15.0 % 05/24/24 06:32 [place] % (Auto) 4.4 % 05/24/24 06:32 Eos % (Auto) 3.1 % 05/24/24 06:32 Baso % (Auto) 0.4 % 05/24/24 06:32 Neut # (Auto) 6.46 10^3/uL (1.8-7.7) 05/24/24 06:32 Lymph # (Auto) 1.3 10^3/uL (0.8-4.8) 05/24/24 06:32 [place] # (Auto) 0.4 10^3/uL (0.2-0.9) 05/24/24 06:32 Eos # (Auto) 0.3 10^3/uL (0.0-0.8) 05/24/24 06:32 Baso # (Auto) 0.0 10^3/uL (0.0-0.1) 05/24/24 06:32 Nucleated RBC % (auto) 0 % 05/24/24 06:32 Nucleated RBCs # 0.0 /100WBC 05/24/24 06:32 Procedures Performed Laparoscopic converted to open repair of recurrent incisional hernia with with mesh and extensive lysis of adhesions Vitals Last Vital Signs Temp 98.2 F 05/24/24 11:40 Pulse 81 05/24/24 11:40 Resp 18 05/24/24 11:40 BP 135/80 05/24/24 11:40 Pulse Ox 93 05/24/24 11:40 O2 Del Method Room Air 05/24/24 11:40 O2 Flow Rate 7 05/21/24 13:32 Discharge Plan Discharge Patient Disposition: Home Condition: Stable Prescriptions: New hydrocodone-acetaminophen 7.5-325 mg tablet 1 tab PO Q6H PRN (Reason: pain) Qty: 20 0RF docusate sodium [Colace] 100 mg capsule 100 mg PO BID Qty: 14 0RF polyethylene glycol 3350 [Miralax] 17 gram/dose powder 4 g PO DAILY Qty: 119 0RF Continued famotidine 40 mg tablet 40 mg PO BID Qty: 60 5RF rosuvastatin 5 mg tablet 5 mg PO DAILY Qty: 90 0RF Discharge Orders: Discharge Order (Routine); Ordered 05/24/24 Ordered By: Lacho Groves Referrals: Lacho Groves DO [Physician] - 2 weeks Discharge Diet: Advance as tolerated Discharge Activity: Limit activity as instructed Patient Instructions: Acute Wound Care (DC), Opioid Safety, Post Anesthesia Care Activity Restrictions/Additional Instructions: No lifting, pushing or pulling over 15 pounds for 6 weeks. Do not soak incisions underwater for 2 weeks. Shower daily. Let the glue fall off on its own. Discharge Attestations Time Spent in Discharge Care*: less than 30 min Quality Metrics Clinical Quality Measures [ No reported AMI, CVA or VTE this stay] Coding Level of Care Code Acute Code for Chg Fwd Diagnoses Recurrent incisional hernia with incarceration K43.0 Morbid obesity with BMI of 40.0-44.9, adult E66.01; Z68.41 Abdominal adhesions K66.0
[2024-05-24 16:26] VITALS: BP 135/80; PULSE 81; RESP 18; TEMP 36.8; O2SAT 93
== END 2024-05-24 16:27 | disposition home or self-care (01) | DRG 330 ==
LOC: MEDSURG 15:56
PROVIDERS: Admitting Provider Surgery; PCP Nurse Practitioner Family; Visit Provider Surgery
PROC: 0DQ80ZZ Repair Small Intestine, Open Approach (ICD-10-PCS; 2024-05-21 09:05)
PROC: 0DQ80ZZ Repair Small Intestine, Open Approach (ICD-10-PCS; 2024-05-21 09:05)
DX: K43.0 Incisional hernia with obstruction, without gangrene (principal); K91.71 Accidental puncture and laceration of a digestive system organ or structure during a digestive system procedure; Z68.42 Body mass index [BMI] 45.0-49.9, adult; E66.01 Morbid (severe) obesity due to excess calories; K66.0 Peritoneal adhesions (postprocedural) (postinfection); Z53.31 Laparoscopic surgical procedure converted to open procedure; Z90.49 Acquired absence of other specified parts of digestive tract; Z80.7 Family history of other malignant neoplasms of lymphoid, hematopoietic and related tissues; Z80.3 Family history of malignant neoplasm of breast; Z80.8 Family history of malignant neoplasm of other organs or systems
CPT/HCPCS: 36415; 51702; 85025; 88302; 96372; C1781; J0131; J0330; J0690; J1100; J1170; J1644; J1885; J2405; J2543; J2704; J3010; J3490; J7030

== ENCOUNTER 2024-05-30 13:19 | Emergency (ER) | payer BC, MEDICAID, SELFPAY ==
[2024-05-30 13:34] VITALS: BP 147/93; PULSE 82; RESP 17; TEMP 36.8; O2SAT 96; BMI 42.0
--- NOTE | 2024-05-30 13:52 | ED_ITS ---
HPI - Wound/Laceration 2 General: Chief Complaint: Wound/Laceration Stated Complaint: fever, abd incision red Time Seen by Provider: 05/30/24 13:40 Source: patient Mode of arrival: ambulatory Limitations: no limitations History of Present Illness: 59-year-old female who had hernia repair May 20 states yesterday she had a fever and she is worried about some possible redness around her incision she denies any drainage she denies any pain she denies any vomiting or diarrhea. She denies any worse improving factors. Patient is afebrile here in no pain Associated symptoms: Reports fever(s); Denies chills, nausea or vomiting Related Data Previous Rx's Medication Instructions Recorded famotidine 40 mg tablet 40 mg PO BID #60 tabs 04/20/24 rosuvastatin 5 mg tablet 5 mg PO DAILY #90 tabs 04/23/24 docusate sodium 100 mg capsule 100 mg PO BID #14 caps 05/24/24 (Colace) hydrocodone 7.5 mg-acetaminophen 1 tab PO Q6H PRN pain #20 tabs 05/24/24 325 mg tablet polyethylene glycol 3350 17 4 g PO DAILY #119 grams 05/24/24 gram/dose oral powder (Miralax) amoxicillin 875 mg-potassium 1 tab PO BID #14 tabs 05/25/24 clavulanate 125 mg tablet Allergies Allergy/AdvReac Type Severity Reaction Status Date / Time No Known Allergies Allergy Verified 05/30/24 13:34 Review of Systems 2 Const: Reports: fever(s); Denies: chills, body aches or change in appetite ENMT: Denies: throat pain or dental pain Card: Denies: chest pain Resp: Denies: dyspnea GI: Denies: abdominal pain, nausea, vomiting or diarrhea Musc: Denies: neck pain or back pain Skin/Breast: Denies: rash Neuro: Denies: headache(s) PFSH ED 2 PFSH: Surgical History Hx of section x3 Hx laparoscopic cholecystectomy Hx of hernia repair with panniculotomy Hx of colonoscopy unknown when last done Family History Mother Cancer non hodkins lymphoma Diabetes Father Cancer pancreatic Sister Breast cancer Social History Smoking and tobacco/nicotine status: never used tobacco/nicotine Second hand smoke exposure: No Alcohol intake: never Substance/Drug Use: never Physical Exam 2 Const: COMMON NORMALS: no acute distress, patient oriented x3 and healthy appearing HENMT: COMMON NORMALS: normocephalic and atraumatic HEAD & SCALP: n ormocephalic and atraumatic Eye: COMMON NORMALS: conjunctivae normal CONJUNCTIVA: Yes conjunctivae normal Neck/C-Spine: COMMON NORMALS: full ROM and supple Chest: COMMONS NORMALS: normal inspection of the chest Resp: COMMON NORMALS: normal respiratory effort Cardio: COMMON NORMALS: regular rate, regular rhythm and No murmurs present (Cardio) RATE: regular rate RHYTHM: regular rhythm GI: COMMON NORMALS: Normal to inspection, nondistended, normoactive bowel sounds present, Soft to palpation, non-tender and no masses PALPATION: Yes Soft to palpation OTHER: Incisions clean dry and intact with isaías in place Extremity: COMMON NORMALS: normal to inspection and full ROM Neuro: COMMON NORMALS: patient oriented x3, moves all extremities and no focal motor deficits Psych: COMMON NORMALS: mental status grossly normal, Normal thought process present and cooperative THOUGHT PROCESS: Normal thought process present Skin: COMMON NORMALS: no rashes or lesions noted and no wounds GENERAL SKIN EXAM: no rashes or lesions noted Course 2 Vital Signs: Vital signs: Vital Signs Temperature 98.2 F 05/30/24 13:34 Pulse Rate 81 05/30/24 15:06 Respiratory Rate 16 05/30/24 15:06 Blood Pressure 144/80 05/30/24 15:06 Pulse Oximetry 96 05/30/24 15:06 Oxygen Delivery Me thod Room Air 05/30/24 15:06 MDM - Wound/Laceration Medical Decision Making Patient presents here with concerns for her abdominal incision here she has no drainage no signs of cellulitis she is afebrile here she has an appoint with her surgeon on Saturday she is to follow-up as scheduled return if worsening she understands agrees to plan Medical Records I reviewed the patient's medical records. Lab Data I reviewed the patient's lab results. 05/30/24 13:50 05/30/24 13:50 Laboratory Results WBC 11.13 10^3/uL (3.29-11.43) 05/30/24 13:50 RBC 4.87 10^6/uL (3.85-5.65) 05/30/24 13:50 Hgb 14.80 g/dL (11.27-16.99) 05/30/24 13:50 Hct 44.2 % (36-47) 05/30/24 13:50 MCV 90.8 fl (85-98) 05/30/24 13:50 MCH 30.4 pg (27-33) 05/30/24 13:50 MCHC 33.5 g/dL (30-55) 05/30/24 13:50 RDW 12.8 % (12.1-15.1) 05/30/24 13:50 Plt Count 316 10^3/cmm (157-399) 05/30/24 13:50 MPV 9.1 fL (7.4-10.4) 05/30/24 13:50 Neut % (Auto) 74.7 % 05/30/24 13:50 Lymph % (Auto) 15.3 % 05/30/24 13:50 [place] % (Auto) 6.6 % 05/30/24 13:50 Eos % (Auto) 1.9 % 05/30/24 13:50 Baso % (Auto) 0.5 % 05/30/24 13:50 Neut # (Auto) 8.32 10^3/uL (1.8-7.7) H 05/30/24 13:50 Lymph # (Auto) 1.7 10^3/uL (0.8-4.8) 05/30/24 13:50 [place] # (Auto) 0.7 10^3/uL (0.2-0.9) 05/30/24 13:50 Eos # (Auto) 0.2 10^3/uL (0.0-0.8) 05/30/24 13:50 Baso # (Auto) 0.1 10^3/uL (0.0-0.1) 05/30/24 13:50 Nucleated RBC % (auto) 0 % 05/30/24 13:50 Nucleated RBCs # 0.0 /100WBC 05/30/24 13:50 ESR 36 mm/hr (0-15) H 05/30/24 13:50 Sodium 133 mmol/L (136-145) L 05/30/24 13:50 Potassium 3.5 mmol/L (3.5-5.1) 05/30/24 13:50 Chloride 94 mmol/L (98-107) L 05/30/24 13:50 Carbon Dioxide 28 mmol/L (22-29) 05/30/24 13:50 Anion Gap 14.5 (5-19) 05/30/24 13:50 BUN 7 mg/dL (6-20) 05/30/24 13:50 Creatinine 0.8 mg/dL (0.5-0.9) 05/30/24 13:50 GFR Calculation 73.7 mL/min (90-130) L 05/30/24 13:50 Glucose 133 mg/dL (65-115) H 05/30/24 13:50 Calculated Osmolality 276 mOsm/kg (285-295) L 05/30/24 13:50 Calcium 9.5 mg/dL (8.5-10.5) 05/30/24 13:50 Total Bilirubin 0.8 mg/dL (0.15-1.2) 05/30/24 13:50 AST 15 U/L (0-32) 05/30/24 13:50 ALT 12 U/L (0-33) 05/30/24 13:50 Alkaline Phosphatase 75 U/L (35-105) 05/30/24 13:50 C-Reactive Protein 248.2 mg/L (0.0-4.9) H 05/30/24 13:50 Total Protein 7.9 g/dL (6.6-8.7) 05/30/24 13:50 Albumin 3.4 g/dL (3.5-5.2) L 05/30/24 13:50 Globulin 4.5 g/dL (1.3-4.6) 05/30/24 13:50 Lipase 32 U/L (13-60) 05/30/24 13:50 Urine Color [place] (Yellow) A 05/30/24 14:40 Urine Appearance Clear (CLEAR) 05/30/24 14:40 Urine pH 6.0 (5-7) 05/30/24 14:40 Ur Specific [place] 1.018 (1.005-1.030) 05/30/24 14:40 Urine Protein 1+ (Negative) A 05/30/24 14:40 Urine Glucose (UA) Negative (Normal) 05/30/24 14:40 Urine Ketones Negative (Negative) 05/30/24 14:40 Urine Blood Trace (Negative) A 05/30/24 14:40 Urine Nitrate Negative (Negative) 05/30/24 14:40 Urine Bilirubin Negative (Negative) 05/30/24 14:40 Urine Urobilinogen 1.0 mg/dL (Negative) 05/30/24 14:40 Ur Leukocyte Esterase Negative (Negative) 05/30/24 14:40 Urine RBC None /hpf (0-2) 05/30/24 14:40 Urine WBC 5-10 /hpf (0-5) H 05/30/24 14:40 Ur Squamous Epith Cells 0-4 /hpf (0-5) H 05/30/24 14:40 Amorphous Sediment Not Reportable 05/30/24 14:40 Urine Bacteria None /hpf (NONE) 05/30/24 14:40 No radiology studies performed this visit Discharge Plan Discharge Patient Disposition: Home Clinical Impression: Encounter for post surgical wound check Condition: Stable Prescriptions: No Action famotidine 40 mg tablet 40 mg PO BID Qty: 60 5RF rosuvastatin 5 mg tablet 5 mg PO DAILY Qty: 90 0RF amoxicillin-pot clavulanate 875-125 mg tablet 1 tab PO BID Qty: 14 0RF hydrocodone-acetaminophen 7.5-325 mg tablet 1 tab PO Q6H PRN (Reason: pain) Qty: 20 0RF docusate sodium [Colace] 100 mg capsule 100 mg PO BID Qty: 14 0RF polyethylene glycol 3350 [Miralax] 17 gram/dose powder 4 g PO DAILY Qty: 119 0RF Discharge Orders: Discharge ED (Routine); Ordered 05/30/24 Ordered By: Sierra Edwards Referrals: Sera Mcghee FNP-C [Primary Care Provider] - 4-7 days Discharge Diet: Advance as tolerated Discharge Activity: Resume usual activity Patient Instructions: Wound Care (General) Coding Level of Care Code ED Arts And Crafts Instructor for Saniyag Allen
[2024-05-30 13:56] LABS: Basophils # 0.1 10^3/uL (0.0-0.1); Basophils % 0.5 %; Eosinophils # 0.2 10^3/uL (0.0-0.8); Eosinophils % 1.9 %; Hematocrit 44.2 % (36-47); Lymphocytes # 1.7 10^3/uL (0.8-4.8); Lymphocytes % 15.3 %; Mean Corpuscular HGB Conc 33.5 g/dL (30-55); Mean Corpuscular Hemoglobin 30.4 pg (27-33); Mean Corpuscular Volume 90.8 fl (85-98); Mean Platelet Volume 9.1 fL (7.4-10.4); Monocytes # 0.7 10^3/uL (0.2-0.9); Monocytes % 6.6 %; Neutrophils # 8.32 10^3/uL (1.8-7.7); Neutrophils % 74.7 %; Nucleated Red Blood Cells % 0 %; Platelet Count 316 10^3/cmm (157-399); Red Blood Count 4.87 10^6/uL (3.85-5.65); Red Cell Distribution Width 12.8 % (12.1-15.1); White Blood Count 11.13 10^3/uL (3.29-11.43)
[2024-05-30 14:18] LABS: Erythrocyte Sedimentation Rate 36 mm/hr (0-15)
[2024-05-30 14:25] LABS: Alanine Aminotransferase 12 U/L (0-33); Albumin Level 3.4 g/dL (3.5-5.2); Alkaline Phosphatase 75 U/L (35-105); Anion Gap 14.5 (5-19); Aspartate Amino Transferase 15 U/L (0-32); Blood Urea Nitrogen 7 mg/dL (6-20); C Reactive Protein 248.2 mg/L (0.0-4.9); Calcium 9.5 mg/dL (8.5-10.5); Carbon Dioxide 28 mmol/L (22-29); Chloride 94 mmol/L (98-107); Creatinine Clr Calc Pharmacy 110.6362; Globulin 4.5 g/dL (1.3-4.6); Glomerular Filtration Rate 73.7 mL/min (90-130); Glucose 133 mg/dL (65-115); Lipase 32 U/L (13-60); Osmolality Calculated 276 mOsm/kg (285-295); Potassium 3.5 mmol/L (3.5-5.1); Sodium 133 mmol/L (136-145); Total Bilirubin 0.8 mg/dL (0.15-1.2); Total Protein 7.9 g/dL (6.6-8.7)
[2024-05-30 14:55] LABS: Bilirubin Urine Negative (Negative); Blood Urine Trace (Negative); Glucose Urine UA Negative (Normal); Ketones Urine Negative (Negative); Leukocyte Esterase Urine Negative (Negative); Nitrate Urine Negative (Negative); Protein Urine 1+ (Negative); Specific Gravity, Urine 1.018 (1.005-1.030); Urine Appearance Clear (CLEAR)
[2024-05-30 15:06] VITALS: BP 144/80; PULSE 81; RESP 16; O2SAT 96
[2024-05-30 15:06] LABS: Urine Color Orange (Yellow)
[2024-05-30 15:07] LABS: Add Urine Culture? No; Add Urine Microscopic? YES; Squamous Epithelial Cell Urine 0-4 /hpf (0-5); UA Manual Slide Review YES; UA Slide Review UA Slide Review Perf
[2024-05-30 15:29] VITALS: BP 160/70; PULSE 83; RESP 16; O2SAT 94
== END 2024-05-30 15:27 | disposition home or self-care (01) ==
PROVIDERS: Emergency Provider Emergency Medicine; PCP Nurse Practitioner Family
DX: Z48.817 Encounter for surgical aftercare following surgery on the skin and subcutaneous tissue (principal); R50.9 Fever, unspecified
CPT/HCPCS: 36415; 80053; 81001; 83690; 85025; 85651; 86140; 99283

== ENCOUNTER 2024-06-14 10:48 | Emergency (ER) | payer BC, MEDICAID, SELFPAY ==
[2024-06-14 11:07] VITALS: BP 140/80; PULSE 78; RESP 18; TEMP 36.7; O2SAT 95; BMI 39.7
--- NOTE | 2024-06-14 11:51 | W.ED.WOUNDLC ---
HPI - Wound/Laceration General: Chief Complaint: Wound/Laceration Stated Complaint: post op pain swelling and drainage - Hernia repair Time Seen by Provider: 06/14/24 11:43 Source: patient Mode of arrival: ambulatory Limitations: no limitations History of Present Illness: Patient had an abdominal wall hernia repair with Dr. Groves on 21 May who presents to the emerged part because she thinks the wound has a bit more than it was previously and is draining more. She denies any fevers or chills. Related Data Previous Rx's Medication Instructions Recorded famotidine 40 mg tablet 40 mg PO BID #60 tabs 04/20/24 rosuvastatin 5 mg tablet 5 mg PO DAILY #90 tabs 04/23/24 hydrocodone 7.5 mg-acetaminophen 1 tab PO Q6H PRN pain #20 tabs 05/24/24 325 mg tablet polyethylene glycol 3350 17 4 g PO DAILY #119 grams 05/24/24 gram/dose oral powder (Miralax) amoxicillin 875 mg-potassium 1 tab PO BID 1 week #14 tabs 06/01/24 clavulanate 125 mg tablet cephalexin 500 mg capsule 500 mg PO Q8H 7 days #21 caps 06/14/24 Allergies Allergy/AdvReac Type Severity Reaction Status Date / Time No Known Allergies Allergy Verified 06/09/24 11:25 [facility] ED PFSH: Surgical History Hx of section x3 Hx laparoscopic cholecystectomy Hx of hernia repair with panniculotomy Hx of colonoscopy unknown when last done Family History Mother Cancer non hodkins lymphoma Diabetes Father Cancer pancreatic Sister Breast cancer Social History Smoking and tobacco/nicotine status: never used tobacco/nicotine Second hand smoke exposure: No Alcohol intake: never Substance/Drug Use: never Physical Exam Narrative: EXAM NARRATIVE: She is alert in no acute distress answers questions in a goal-directed fashion. Const: COMMON NORMALS: no acute distress, patient oriented x3 and no limitations GENERAL APPEARANCE: cooperative and comfortable NUTRITIONAL APPEARANCE: overweight HENMT: COMMON NORMALS: normocephalic and moist oral mucous membranes HEAD & SCALP: normocephalic Eye: COMMON NORMALS: Equal, round and reactive pupils present PUPIL: Yes Equal, round and reactive pupils present Neck/C-Spine: COMMON NORMALS: full ROM Resp: COMMON NORMALS: normal respiratory effort, No use of accessory muscles and clear to auscultation bilaterally AUSCULTATION: clear to auscultation bilaterally Cardio: COMMON NORMALS: regular rate and Peripheral pulses 2+ throughout RATE: regular rate PERIPHERAL PULSES: Peripheral pulses 2+ throughout GI: OTHER: Her abdomen is obese. She has a lower abdominal ventral incision measuring approximately 18 cm. The wound is approximated along its length with skin isaías. Mid portion of the wound has a area of skin dehiscence approximately 1 cm in length. There is serosanguineous drainage. There is erythema around the margin of the wound particular in the superior portion of the wound but there is no other areas of drainage. Back/Pelvis: COMMON NORMALS: thoracic and lumbar spine normal to inspection, no thoracic nor lumbar tenderness and thoraco-lumbar ROM normal Extremity: COMMON NORMALS: normal to inspection, full ROM and no calf tenderness Neuro: COMMON NORMALS: patient oriented x3, moves all extremities, no focal motor deficits and no sensory deficits noted Skin: COMMON NORMALS: no rashes or lesions noted GENERAL SKIN EXAM: no rashes or lesions noted WOUNDS: Yes surgical site (As described) Course Vital Signs: Vital signs: Vital Signs Temperature 98.0 F 06/14/24 11:07 Pulse Rate 78 06/14/24 11:07 Respiratory Rate 18 06/14/24 11:07 Blood Pressure 140/80 06/14/24 11:07 Pulse Oximetry 95 06/14/24 11:07 Oxygen Delivery Me thod Room Air 06/14/24 11:07 MDM - Wound/Laceration Medical Decision Making This patient presented to the emergency room as noted in the HPI. She is status post a ventral hernia open repair done at this facility on 21 May. She has a small wound dehiscence in the mid portion of her ventral incision which is draining serosanguineous fluid. She does have areas of erythema around the superior portion of the incision which is difficult to discern whether this is related to localized inflammation from her isaías versus a mild cellulitis. We will cover her for the latter and she has a follow-up appoint with Dr. Groves in the morning. No evidence of other worrisome condition at this time and she is suitable to be discharged outpatient follow-up. Medical Records I reviewed the patient's medical records. Patient was seen in the emergency department on 30 May for a postoperative check as well No radiology studies performed this visit Discharge Plan Discharge Patient Disposition: Home Clinical Impression: Surgical wound dehiscence Qualifiers: Encounter type: subsequent encounter Qualified Code(s): T81.31XD - Disruption of external operation (surgical) wound, not elsewhere classified, subsequent encounter Condition: Stable Prescriptions: New cephalexin 500 mg capsule 500 mg PO Q8H 7 Days Qty: 21 0RF No Action famotidine 40 mg tablet 40 mg PO BID Qty: 60 5RF amoxicillin-pot clavulanate 875-125 mg tablet 1 tab PO BID 7 Days Qty: 14 0RF rosuvastatin 5 mg tablet 5 mg PO DAILY Qty: 90 0RF hydrocodone-acetaminophen 7.5-325 mg tablet 1 tab PO Q6H PRN (Reason: pain) Qty: 20 0RF polyethylene glycol 3350 [Miralax] 17 gram/dose powder 4 g PO DAILY Qty: 119 0RF Discharge Orders: Discharge ED (Routine); Ordered 06/14/24 Ordered By: Tre Quach Referrals: Lacho Groves DO [Family Provider] - 06/15/24 Sera Mcghee FNP-C [Primary Care Provider] - Discharge Diet: Usual diet Discharge Activity: Increase activity as tolerated Patient Instructions: Opioid Safety, Pain Management Activity Restrictions/Additional Instructions: As we discussed we have started you on antibiotic as there may be potential for a localized infection of your wound area. She take these medications as prescribed and follow-up with Dr. Groves in the morning. If you develop any new or worsening symptoms you are welcome to return to the emergency department for reevaluation. Coding Level of Care Code ED Photograph Inspector for Carmelita Villa
[2024-06-14] MEDS: cephALEXin 500 mg Capsule PO (12:34)
[2024-06-14 12:48] VITALS: BP 147/84; PULSE 81; RESP 14; O2SAT 97
== END 2024-06-14 12:51 | disposition home or self-care (01) ==
PROVIDERS: Emergency Provider Emergency Medicine; PCP Nurse Practitioner Family
DX: T81.31XD Disruption of external operation (surgical) wound, not elsewhere classified, subsequent encounter (principal); X58.XXXD Exposure to other specified factors, subsequent encounter; Z98.890 Other specified postprocedural states
CPT/HCPCS: 99283

== ENCOUNTER 2024-07-23 10:46 | Outpatient (CLI) | payer BC, MEDICAID, SELFPAY ==
--- NOTE | 2024-07-23 11:00 | MM_ITS ---
WS: [id number] RIGHT 3D TOMOSYNTHESIS DIGITAL MAMMOGRAPHY WITH CAD CLINICAL INFORMATION: R92.1 - Mammographic calcification found on diagnostic im... HISTORY: 6-month follow-up calcifications COMPARISON: 01/30/2024 and 12/17/2023 TECHNIQUE: 3 views of the right breast were obtained. FINDINGS: Scattered fibroglandular densities of the right breast. Again seen are the clustered calcifications o uter RIGHT breast. These appear stable in magnification views today compared to previous. These are r elatively stable since 2018. Considering stability recommend return to annual screening mammography. MM/MM diag RT tomosynthesis [id number] IMPRESSION: DENSITY: There are scattered areas of fibroglandular density. BI-RADS: 2 - Benign. FOLLOW UP: 1 Year Follow-up Recommend return to annual screening mammography.
== END 2024-07-23 10:47 | disposition home or self-care (01) ==
LOC: RAD 10:47
PROVIDERS: PCP Nurse Practitioner Family; Visit Provider Family Medicine
DX: R92.1 Mammographic calcification found on diagnostic imaging of breast (principal); R92.323 Mammographic fibroglandular density, bilateral breasts
CPT/HCPCS: 77061; G0279